=== PATIENT | female | born 1990 ===

== ENCOUNTER 2018-05-04 05:09 | Inpatient (IN) | payer MEDICAID, OTHER, SELFPAY ==
[2018-05-04 05:42] VITALS: BMI 25.7
[2018-05-04] MEDS ORDERED: NS / Oxytocin 40 units/1000ml 1,000 ML IV PRN (06:15)
[2018-05-04] MEDS ORDERED: Promethazine HCl 25 MG/ML VIAL IM PRN (06:15)
[2018-05-04] MEDS ORDERED: Lidocaine 1% (PF) 30 ML VIAL SC PRN (06:15)
[2018-05-04] MEDS ORDERED: Lactated Ringer's 1,000 ML IV SCH (06:15)
[2018-05-04] MEDS ORDERED: Ondansetron PF 4 MG/2 ML Vial IVP PRN (06:15)
--- NOTE | 2018-05-04 06:20 | PDOC.FPROB ---
FMR OB H&P: HPI - History of Present Illness Chief Complaint: Contractions History of Present Illness: 27 yo at 39.5 by LMP/14.6w sono presents with ctx since 0. She denies LOF, VB, vaginal discharge. She is feeling baby move regularly. Primary Care Physician: Mellisa Loco DO FMR OB H&P: Current - Care : 3 Para: 2 Gestational age: 39.5 Due date: 05/06/2018 Dating Criteria: LMP/14.6w sono - OB Labs Blood type: A RH: positive Antibody Screen: negative HIV: negative RPR: negative HepBsAg: negative Rubella: immune Quad screen: unknown Gonorrhea: negative Chlamydia: negative Pap Smear: NILM A1c: 5.9 GBS: negative - First Trimester Ultrasound First trimester: 14.6w - Anatomy Survey Anatomy survey: WNL FMR OB H&P: History - Past Medical History PMH: Denies - Surgical History Sx History: Denies - Social History Social History: Denies t/a/d - Family History Family History: Denies FMR OB H&P: Medications - Current Home Medications: Medication Instructions Recorded Confirmed Type Ibuprofen [Motrin] 800 mg PO Q8HR #9 tab 05/05/18 Rx Allergies/Adverse Reactions: Allergies Allergy/AdvReac Type Severity Reaction Status Date / Time No Known Allergies Allergy Verified 05/04/18 05:37 FMR OB H&P: ROS - Review of Systems General: denies: fever/chills, weight/appetite/sleep changes Eyes: denies: eye pain, vision changes ENT: denies: nasal congestion, rhinorrhea Cardiovascular: denies: chest pain, palpitation Respiratory: denies: cough, congestion Gastrointestinal: reports: abdominal pain. denies: diarrhea, constipation Genitourinary (Female): denies: dysuria, hematuria Musculoskeletal: denies: stiffness, tenderness Integumentary: denies: rash, lesions FMR OB H&P: Vital Signs - Maternal Vital signs: Vital Signs - First Documented Temp Pulse Resp BP 98.0 F 82 16 117/72 05/04/18 05:36 05/04/18 05:36 05/04/18 05:36 05/04/18 05:36 - Heart Tones Baseline: 140 Variability: moderate Acceleration: absent Deceleration: absent Category: category 1 Schlusser contractions every: 8-10 min FMR OB H&P: Physical Exam - Physical Exam General: NAD, awake, alert and oriented HEENT: normocephalic and atraumatic, MMM Neck: trachea midline Heart: RRR, normal S1/S2 General: CTAB, no respiratory distress Abdomen: soft, gravid, non-tender Musculoskeletal: normal gait and station, pulses present Skin: no rash, good tugor Psychiatric: good judgement and insight, normal mood and affect - Pelvic Exam SVE: 6.5/80/-2 Presentation: cephalic FMR OB H&P: A/P - Problem List (1) Multigravida in third trimester Status: Resolved Code(s): Z34.83 - ENCOUNTER FOR SUPRVSN OF NORMAL , THIRD TRIMESTER Disposition: Admit to L&D for expectant management Discussion: Date/Time: 05/04/1818 A/P: 27 yo in active labor 1. Active labor - Admit to L&D - Expectant management - Labs pending - Does not desire epidural 2. Incomplete care - No GTT performed, a1c 5.9 recently - Accucheck ordered This H&P was discussed with Dr. Ellis and Dr. Bermeo who agree with the above documentation and plan. Signature: Crissy Kauffman MD Attending Addendum - Attending Addendum Date/Time: 05/07/18 2468 I personally evaluated the patient and discussed the management with team. I agree with the History, Examination, Assessment and Plan documented above with any addition or exceptions noted below.
[2018-05-04 07:05] LABS: Hemoglobin 13.3 g/dL (12.0-16.0); Mean Corpuscular HGB CONC 34.1 g/dL (32.0-36.0); Mean Corpuscular Hemoglobin 31.2 pg (27.0-31.0); Mean Corpuscular Volume 91.4 fL (78.0-98.0); Mean Platelet Volume 7.5 fL (7.4-10.4); Platelet Count 245 thou/uL (130-400); RBC Distribution Width 11.5 % (11.5-14.5); Red Blood Cell (RBC) Count 4.27 mill/uL (4.20-5.40); White Blood Cell (WBC) Count 7.2 thou/uL (4.8-10.8)
[2018-05-04] MEDS ORDERED: Oxytocin 10 UNITS/ML VIAL ONE (07:44)
[2018-05-04 07:48] LABS: HBSAg Index 0.23 S/CO (0-0.99); Hep B Surf Ag Non-Reactive S/CO (NonReactive)
--- NOTE | 2018-05-04 07:49 | PDOC.LDPN ---
Labor & Delivery Progress Note - Subjective Subjective: painful contractions - Objective Vital signs reviewed and normal: yes General: resting, breathing through contractions Uterine fundus: non tender Dilation: 8-9 Effacement: 100% Station: 0 FHT: category 1, variability present Jessie contractions every: 3-4 AROM: clear fluid - Assessment (1) Multigravida in third trimester Code(s): Z34.83 - ENCOUNTER FOR SUPRVSN OF NORMAL , THIRD TRIMESTER Current Visit: No Status: Resolved Plan: continue plan of care (27 yo at 39w5d in spontaneous active labor. AROMed for moderate amount of clear fluid. Cat I FHT. Continue expectant management. Anticipate . )
--- NOTE | 2018-05-04 10:17 | PDOC.OPDEL ---
OB Operative/Delivery Note Delivery Dr/Surgeon: Ayaz Loco Pre-Delivery Diagnosis: active labor Procedure/Post Delivery Dx: spontaneous vaginal delivery Weeks gestation: 39 (.5) Anesthesia: none - Findings A Sex: female - 1 min: 8 - 5 min: 9 - Additional Findings/Plan Placenta delivered: spontaneous Repaired Obstetrical Laceration: other (midline episiotomy scar) Estimated blood loss: QBL 227 Compilations/Other Findings: This is 27 y/o F @ 39.5wks who delivered a viable F at 0934 on . Following an uneventful antepartum course, a vigorous female was delivered over an intact perineum in the occipitoanterior position. Anterior Shoulder and then remainder of the body delivered. Nuchal cord present. The head was held down and mouth and nares were bulb suctioned. Cord clamped (after delayed cord clamping) and cut and cord blood collected. Placenta delivered intact (in the Casarez presentation) with a 3 vessel cord noted. Fundal massage was performed and the fundus was firm. The cervix and vagina were inspected, Laceration noted and repaired with 3.0 vicryl in the usual fashion with good approximation and hemostasis after a local anesthetic 10mL lidocaine was injected at site. Infant went to nursery in good condition for routine care. Apgars were 8/9 at 1 & 5 minutes, respectively. Patient tolerated delivery well and went to after routine recovery/care. Post delivery plan: recovery in LICU <Akira Jacome - Last Filed: 05/04/18 10:33> Attending Addendum - Attending Addendum Date/Time: 05/04/18 7977 I was present for and assisted in the entire uncomplicated performed by Dr. Jacome. I agree with the documentation above. <Mellisa Loco - Last Filed: 05/04/18 15:18>
[2018-05-04] MEDS ORDERED: Bisacodyl 10 MG SUPP PR PRN (10:31)
[2018-05-04] MEDS ORDERED: Adacel (T-DAP) 0.5 ML VIAL IM ONE (10:31)
[2018-05-04] MEDS ORDERED: Milk Of Magnesia 30 ML UDCUP PO PRN (10:31)
[2018-05-04] MEDS ORDERED: Methylergonovine 0.2 MG TAB PO PRN (10:31)
[2018-05-04] MEDS ORDERED: NS / Oxytocin 40 units/1000ml 1,000 ML IV SCH (10:31)
[2018-05-04] MEDS ORDERED: Misoprostol 200 MCG TAB VAG PRN (10:31)
[2018-05-04] MEDS: Ibuprofen 800 MG TAB PO SCH ×2 (15:15→21:10)
[2018-05-04] MEDS: Ferrous Sulfate 325 MG TAB PO SCH (16:07)
[2018-05-04 16:10] LABS: Syphilis Antibody Nonreactive (Nonreactive); Syphilis Antibody Index 0.03 S/CO (<1.00 Non-Reactive)
[2018-05-04] MEDS ORDERED: Benzocaine/Menthol 20-0.5% 60 ML CAN TOP PRN (17:43)
[2018-05-04] MEDS: Docusate Calcium (SURFAK) 240 MG CAP PO SCH (21:10)
[2018-05-05] MEDS: Ibuprofen 800 MG TAB PO SCH ×2 (05:35→13:53)
[2018-05-05] MEDS: Ferrous Sulfate 325 MG TAB PO SCH ×2 (07:52→15:16)
[2018-05-05 08:10] VITALS: BP 106/63; TEMP 97.6
--- NOTE | 2018-05-05 08:29 | PDOC.PP ---
Post Progress Note Post Day #: 1 Subjective: Mrs. Weber is resting comfortably in her chair, she reports ambulation, urination , tolerating PO, flatus, and bleeding close to that of normal menstruation. successfully Vital Signs (12 hours) Temp Pulse Resp BP Pulse Ox 05/05/18 08:09 97.6 F 89 20 106/63 96 05/05/18 05:00 97.8 F 71 18 113/64 05/05/18 00:00 98.2 F 69 20 92/52 L Weight Weight 63.957 kg - Physical Examination General: NAD Cardiovascular: no m/r/g, RRR Respiratory: clear to auscultation bilaterally Abdominal: no distention, appropriately TTP Neurological: no gross focal deficits Result Diagrams: 05/04/18 06:45 Additional Labs: Post Labs Blood Type A POSITIVE 05/04/18 06:45 Hep Bs Antigen Non-Reactive S/CO (NonReactive) 05/04/18 06:45 (1) Spontaneous vaginal delivery Code(s): O80 - ENCOUNTER FOR FULL-TERM UNCOMPLICATED DELIVERY Status: Acute Comment: Patient is currently PPD#1 and doing well. Tolerating PO, ambulating, and toileting without difficulty. well. Vitals stable. Appropriate lochia at this time. Continue breast feeding ad brenden. Pain minimal currently. Continue routine care. Possible DC later today. <Akira Jacome - Last Filed: 05/05/18 08:28> Vital Signs (12 hours) Temp Pulse Resp BP Pulse Ox 05/05/18 08:09 97.6 F 89 20 106/63 96 05/05/18 05:00 97.8 F 71 18 113/64 Weight Weight 63.957 kg Result Diagrams: 05/04/18 06:45 Additional Labs: Post Labs Blood Type A POSITIVE 05/04/18 06:45 Hep Bs Antigen Non-Reactive S/CO (NonReactive) 05/04/18 06:45 (1) Multigravida in third trimester Code(s): Z34.83 - ENCOUNTER FOR SUPRVSN OF NORMAL , THIRD TRIMESTER Status: Resolved <Mellisa Loco - Last Filed: 05/05/18 12:38> Attending Addendum - Attending Addendum Date/Time: 05/05/18 1237 I personally evaluated the patient and discussed the management with Dr. Jacome I agree with the History, Examination, Assessment and Plan documented above with any addition or exceptions noted below. Meeting appropriate milestones. Fundus firm and 2cm below umbilicus. Patient prefers d/c to home tomorrow. <Mellisa Loco - Last Filed: 05/05/18 12:38>
[2018-05-05] MEDS ORDERED: Prenatal Vitamin 1 TAB PO SCH (09:00)
[2018-05-05] MEDS: Docusate Calcium (SURFAK) 240 MG CAP PO SCH (09:25)
== END 2018-05-05 18:30 | disposition home or self-care (01) | DRG 807 ==
LOC: L&D/OP 05:09 → L&D 06:21 → 3SW 14:43
PROVIDERS: ADMIT Emergency Medicine; ATTEND Family Medicine
PROC: 0KQM0ZZ Repair Perineum Muscle, Open Approach (ICD-10-PCS; principal; 2018-05-04)
PROC: 10E0XZZ Delivery of Products of Conception, External Approach (ICD-10-PCS; 2018-05-04)
PROC: 10907ZC Drainage of Amniotic Fluid, Therapeutic from Products of Conception, Via Natural or Artificial Opening (ICD-10-PCS; 2018-05-04)
DX: O70.1 Second degree perineal laceration during delivery (principal); Z37.0 Single live birth; Z3A.39 39 weeks gestation of pregnancy
CPT/HCPCS: 85027; 86780; 86850; 86900; 86901; 87340; 99285; J2001; J2590